=== PATIENT | male | born 1935 | race Caucasian/White ===

== ENCOUNTER 2019-06-26 08:11 | Outpatient (CLI) | payer MEDICARE, SELFPAY ==
--- NOTE | ~2019-06-26 | CT_ITS ---
EXAMINATION: CT chest abdomen pelvis wo con DATE: 06/26/2019 08:44 INDICATION: Bladder cancer. TECHNIQUE: Computed tomography (CT) of the chest, abdomen, and pelvis was performed without intraveno us contrast. Automated exposure control and iterative reconstruction technique were employed. The dos e-length product was 612.14 mGy-cm. COMPARISON: CT abdomen and pelvis 06/09/2018, 10/14/2016 FINDINGS: CHEST CT: There is mild scarring at the lung apices. There is bronchiectasis in the inferior lungs. There is mi ld emphysema. There are centrilobular nodules, tree-in-bud opacities, and small airspace opacities in volving the lower lobes, right middle lobe, and lingula, consistent with pneumonia. Calcified right l dustin nodules and calcified right hilar and mediastinal lymph nodes are consistent with old granulomato us disease. No pleural effusion. There are nodules in the thyroid measuring up to 8 mm, likely not cl inically significant. The heart size is normal. There are coronary artery calcifications. No pericard ial effusion. There is bilateral gynecomastia. There is a benign bone island in right scapula. ABDOMEN/PELVIS CT: There are cysts in the liver measuring up to 12 mm. The gallbladder, spleen, pancreas, and adrenal gl ands are normal. There is a 1.6 cm cyst in right kidney. There is a 1 mm stone in right kidney. There is severe right hydronephrosis and hydroureter to the level of the ileal conduit. There is a 5.3 cm cyst with wall calcifications in left kidney, likely benign. There are 4 stones in left kidney measur ing up to 9 mm. There is severe left hydronephrosis and hydroureter. There are 2 mm, 3 mm, and 6 mm s tones in distal left ureter. There is a small left inguinal hernia containing fat. There is diverticu losis of the colon without evidence of diverticulitis. There is a supraumbilical ventral hernia conta ining fat. There are no pathologically enlarged lymph nodes. There is no free intraperitoneal fluid. The right testis is in the inguinal canal. There is a benign bone island in left femoral head. Again seen is a large sclerotic lesion in L2 vertebral body. IMPRESSION: 1. Stable sclerotic lesion in L2 vertebral body, consistent with metastatic disease. 2. Worsened severe left hydronephrosis and hydroureter with 3 stones in distal left ureter measuring up to 6 mm. 3. Stable severe right hydronephrosis and hydroureter. 4. Bilateral nonobstructing kidney stones. 5. Worsened chronic versus recurrent pneumonia in the inferior lungs. Reviewed, dictated and finalized at location E. IMPRESSION: 1. Stable sclerotic lesion in L2 vertebral body, consistent with metastatic dis ease. 2. Worsened severe left hydronephrosis and hydroureter with 3 stones in distal left ureter measuring up to 6 mm. 3. Stable severe right hydronephrosis and hydroureter. 4. Bilateral nonobstructing kidney stones. 5. Worsened chronic versus recurrent pneumonia in the inferior lungs.
== END 2019-06-26 08:12 | disposition home or self-care (01) ==
PROVIDERS: Visit Provider Internal Medicine Medical Oncology
DX: C67.8 Malignant neoplasm of overlapping sites of bladder (principal); C61 Malignant neoplasm of prostate; C79.51 Secondary malignant neoplasm of bone; M89.9 Disorder of bone, unspecified; N13.30 Unspecified hydronephrosis; N13.4 Hydroureter; N20.1 Calculus of ureter; N20.0 Calculus of kidney; J18.9 Pneumonia, unspecified organism
CPT/HCPCS: 71250; 74176

== ENCOUNTER 2019-07-11 00:37 | Outpatient (CLI) | payer MEDICARE, SELFPAY ==
[2019-07-11 18:39] LABS: SARS-CoV-2 RNA PCR Negative
== END 2019-07-11 00:38 | disposition home or self-care (01) ==
LOC: ANHCOVIDDT 00:37
PROVIDERS: Visit Provider Urology
DX: Z01.812 Encounter for preprocedural laboratory examination (principal); Z20.828 Contact with and (suspected) exposure to other viral communicable diseases
CPT/HCPCS: 87635; 93005; C9803; U0003

== ENCOUNTER 2019-07-11 08:15 | Outpatient (CLI) | payer MEDICARE, SELFPAY ==
--- NOTE | 2019-07-11 08:19 | ECG_ITS ---
Measurements Intervals [place] Rate: 72 P: 74 ID: [id number] QRS: -80 QRSD: 142 T: 56 QT: 412 QTc: 451 Interpretive Statements SINUS RHYTHM RIGHT BUNDLE BRANCH BLOCK LEFT ANTERIOR FASCICULAR BLOCK BASELINE ARTIFACT- V5-V6 ABNORMAL ECG Electronically Signed On 07-11-2019 8:41:32 CDT by Cam Solis D.O.
== END 2019-07-11 08:16 | disposition home or self-care (01) ==
LOC: ANHSURGERY 08:19
PROVIDERS: Visit Provider Urology
DX: N20.1 Calculus of ureter (principal); I45.10 Unspecified right bundle-branch block; I44.4 Left anterior fascicular block
CPT/HCPCS: 93005

== ENCOUNTER 2019-07-13 01:19 | Day surgery (SDC) | payer MEDICARE, SELFPAY ==
[2019-07-06 14:33] VITALS: BMI 24.9
[2019-07-13] VITALS (7 sets, daily range): BP systolic 129–145; BP diastolic 61–73; PULSE 59–73; RESP 11–19; TEMP 36.2–36.8; O2SAT 97–100
--- NOTE | ~2019-07-13 | XR_ITS ---
EXAMINATION: XR fluoroscopy no charge DATE: 07/13/2019 15:19 INDICATION: Left stone extraction and left stent placement. TECHNIQUE: 4 fluoroscopic spot images of the pelvis were obtained during procedure performed by Dr. Karin horowitz. Radiologist was not present for the imaging or procedure. The amount of fluoroscopy time used during this procedure was 0.2 minutes. COMPARISON: CT dated 06/26/2019 FINDINGS: Images demonstrate a catheter check of the right lower quadrant likely extending through a diverting ileal conduit. The stones visualized in the left ureter on prior CT are unable to be distinguished on the postop images likely due to small size and fluoroscopic technique. Surgical clips in the pelvis consistent with prior cystectomy and likely pelvic lymph node dissection. IMPRESSION: 1. Fluoroscopy utilized during likely ileal loopostomy. See procedure note for further detail. Reviewed, dictated and finalized at location A.
--- NOTE | 2019-07-13 07:13 | WPDHPUPDATE1 ---
History and Physical Update Update Date/Time: 07/13/19 07:13 History and Physical has been reviewed, including an updated exam of the patient. There are NO changes in the patient's condition. Risks, benefits, and alternatives have been discussed and questions answered. Patient agrees to proceed with procedure.
--- NOTE | 2019-07-13 08:36 | P.PNAN_ITS ---
Anes - Initial Pre Proc Eval Procedure: Operation Date: 07/13/19 13:15 Proposed Procedures p Looposcopy With Dilation - Hai Vargas MD s Laser Lithotripsy - Hai Vargas MD s Left Ureteroscopy, Left Stone Extraction, Left Ureteral Stent Placement - Hai Vargas MD Date/Time: 07/13/19 08:36 Surgeon: Hai Vargas MD Pre Op Diagnosis: left ureteral stones Patient Data Age: 84 Gender: M Height: 1.73 m Weight: 74.39 kg Allergies Allergy/AdvReac Type Severity Reaction Status Date / Time No Known Allergies Allergy Unverified 07/06/19 14:32 Home Medications Medication Instructions Recorded Confirmed Type enzalutamide [Xtandi] 160 mg PO BID 12/02/18 07/06/19 History leuprolide [Eligard] 7.5 mg SUBCUT DIRECTED 12/02/18 07/06/19 History ECG: Date of Service: 07/11/19 Procedure(s): CA 12 lead EKG Accession Number(s): [id number] cc: ~ Measurements Intervals [place] Rate: 72 P: 74 GA: 178 QRS: -80 QRSD: 142 T: 56 QT: 412 QTc: 451 Interpretive Statements SINUS RHYTHM RIGHT BUNDLE BRANCH BLOCK LEFT ANTERIOR FASCICULAR BLOCK BASELINE ARTIFACT- V5-V6 ABNORMAL ECG Electronically Signed On 07-11-2019 8:41:32 CDT by Cam Solis D.O. Dictated By: Cam Solis DO 07/11/19 0848 Patient hx anesthesia problems: none Family hx anesthesia problems: none PMFSH Past Medical History Medical History Cancer PROSTATE 1996, BLADDER 2016 Surgical History Surgical History H/O prostatectomy H/O total cystectomy CYSTECTOMY 2017 WITH URETEROSTOMY Family History Family History Other Family history of malignant neoplasm Social History Social History Smoking status: Former smoker Smoking end date: 02/08/93 Alcohol intake: current Gender identity (if verbalized by the patient): Male Anes - Eval Final PreProcedure Day of Procedure 07/13/19 08:36 Patient weight: normal Heart: regular rate and rhythm Lungs: clear to auscultation and normal air movement Airway: Mallampati scale class II Neurological: alert and oriented Last oral intake: >/= 8 hours ASA classification: III Emergent: no Anesthetic plan: proceed Anesthesia type and monitoring: general LMA Informed Consent: The patient's anesthetic plan and its attendant risks and benefits were discussed with the patient/family/POA. Questions were solicited and answers provided to the satisfaction of the patient/family/POA.
[2019-07-13] MEDS: LACTATED RINGERS 1,000 ML 30 ML IV CONT (12:00)
[2019-07-13] MEDS: ceFAZolin 2 GM/D5W 50 ML 2 GM/50 ML BAG IVPB (14:06)
--- NOTE | 2019-07-13 15:18 | PM.PROC ---
Procedure Note - Detailed Date of procedure: 07/13/19 Pre-op diagnosis: left ureteral stones Post-op diagnosis: same Procedure performed: Ileal looposcopy Description of procedure: Patient is brought to the operative suite where he is prepped and draped in routine sterile fashion while in the supine position. Lupardus copy of his ileal conduit is undertaken with a 16 F flexible cystoscope. I made an exhaustive attempt to identify the either ureteral orifice, without success. We injected Scott methylene blue and still could not identify the orifices. We attempted to intubate several crevices with glide wires, again without success. At this I abandoned this procedure and make arrangements for placement of a percutaneous nephrostomy tube with either antegrade or retrograde stone manipulation. Anesthesia: GLMA Surgeon: Hai Vargas MD Drains: No Packing: No Pathology: none sent Complications: No immediate complications Condition: stable Disposition: PACU
--- NOTE | 2019-07-13 16:57 | SUR.PREOP ---
UPON ARRIVAL TO OP AREA, PT DENIED PAIN. UROSTOMY BAG INTACT/EMPTY.
== END 2019-07-13 17:04 | disposition home or self-care (01) ==
PROVIDERS: Visit Provider Urology
PROC: (CPT 50951; principal; 2019-07-13 13:15)
DX: N20.1 Calculus of ureter (principal); Z85.51 Personal history of malignant neoplasm of bladder; N41.1 Chronic prostatitis; Z85.46 Personal history of malignant neoplasm of prostate; Z86.718 Personal history of other venous thrombosis and embolism; Z79.01 Long term (current) use of anticoagulants; Z87.891 Personal history of nicotine dependence
CPT/HCPCS: 50951; A9270; C1769; C1887; J0690; J2370; J2405; J2704; J3010; J7120; Q9966; Q9968

== ENCOUNTER 2019-07-18 00:37 | Outpatient (CLI) | payer MEDICARE, SELFPAY ==
[2019-07-18 18:58] LABS: SARS-CoV-2 RNA PCR Negative
== END 2019-07-18 00:38 | disposition home or self-care (01) ==
LOC: ANHCOVIDDT 00:37
PROVIDERS: Visit Provider Urology
DX: Z43.6 Encounter for attention to other artificial openings of urinary tract (principal); Z20.828 Contact with and (suspected) exposure to other viral communicable diseases
CPT/HCPCS: 87635; C9803; U0003

== ENCOUNTER 2019-07-19 14:00 | Inpatient (IN) | payer MEDICARE, SELFPAY ==
[2019-07-19] VITALS (20 sets, daily range): BP systolic 93–135; BP diastolic 45–75; PULSE 71–96; RESP 13–20; TEMP 36.7; O2SAT 88–100; BMI 26.9
--- NOTE | ~2019-07-19 | CT_ITS ---
EXAMINATION: CT guide nephro tube pl LT DATE: 07/19/2019 13:29 INDICATION: Left ureteral stone TECHNIQUE: The procedure including the risks and benefits was discussed with the patient. Risks discu ssed included bleeding and infection. The patient understood the risks and benefits and agreed to pro ceed. The patient was given 1 g of Ancef IV for prophylaxis one half hour prior to placement of the n ephrostomy tube. The skin overlying the left kidney was prepped and draped in usual sterile fashion. Anesthetic was administered with 1% lidocaine subcutaneously. The patient also received 50 mcg fent anyl for additional anesthesia. An 18 gauge trochar needle was inserted into an inferior calyx of th e kidney under CT guidance. The needle was exchanged over a wire for 6, 8 and 9 [place]ian dilators and t hen for an 8.5 [place]ian pigtail catheter under CT guidance. The catheter was stitched to the skin. Anti biotic ointment and a sterile dressing was applied. Additional adhesive fixation device was applied. The mAs was manually decreased to minimize radiation dosage. The dose-length product was 263.10 mGy-c m. There were no immediate complications. 20 mL of clear colorless urine was aspirated and [facility] for Gram stain and cultures. FINDINGS: CT images demonstrate the nephrostomy tube in the left renal pelvis. Severe bilateral hydro ureteronephrosis with both ureters extending to a left lower quadrant ileal conduit. There are couple stones at the anterior and posterior margins of the dilated calyx at the lower pole of the left kidn ey which have not changed in position on the current prone images when compared with the prior supine images. Peripheral rim calcification at a cyst along the anterior margin of the left kidney. IMPRESSION: 1. Successful CT-guided left nephrostomy tube placement with loops formed in the left renal pelvis. Reviewed, dictated and finalized at location A. IMPRESSION: 1. Successful CT-guided left nephrostomy tube placement with loops formed in e left renal pelvis.
--- NOTE | ~2019-07-19 | XR_ITS ---
EXAMINATION: XR fluoroscopy <1hr DATE: 07/20/2019 12:12 INDICATION: Left antegrade pyelogram, stone extraction and ureteral stent placement TECHNIQUE: 8 fluoroscopic images of the abdomen and pelvis were obtained during procedure performed noelle Vargas. Radiologist was not present for the imaging or procedure. The amount of fluoroscopy sanjay e used during this procedure was 1.2 minutes. COMPARISON: None. FINDINGS: Initial hospice patient care secretary image demonstrates a left percutaneous nephrostomy tube with distal loop formed over th e expected location of the left renal pelvis. Subsequent images demonstrate contrast opacification of the left renal collecting system with mild hydronephrosis which appears decreased since on CT images obtained during stent placement one day prior. Subsequent images demonstrate a wire advanced through the nephrostomy tube which extends caudally along the left ureter. There is also been advancement of a retrograde ureteral stent with distal tip also at the left renal pelvis. Final image demonstrates the stent extending distally along the course of a right lower quadrant ileal conduit with distal loo p formed near the expected location of the ostomy of the conduit. IMPRESSION: 1. Fluoroscopy utilized during urologic procedure including replacement of a left percutaneous nephro stomy tube with left ureteral stent extending through a right lower quadrant ileal conduit. See proce dure note for further detail. Reviewed, dictated and finalized at location A. IMPRESSION: 1. Fluoroscopy utilized during urologic procedure including replacement of a le ft percutaneous nephrostomy tube with left ureteral stent extending through a r ight lower quadrant ileal conduit. See procedure note for further detail.
[2019-07-19 10:26] LABS: Mean Platelet Volume 9.1 fl (7.4-10.4); Platelet Count Result 323 k/mm3 (150-375)
--- NOTE | 2019-07-19 12:28 | SUR.OPER ---
1216 Ancef 1Gram given prior to procedure per Dr. Polanco.
--- NOTE | 2019-07-19 12:29 | P.HP_ITS ---
H&P: HPI History of Present Illness Chief complaint: URETERAL STONES Narrative: Miguelito Garcia is a 84 year old male With a history of known prostate and bladder cancer. He is statusPost radical cystectomy severalYearsAgo.He has recently developed some renal insufficiency and upper tract imaging shows new left hydronephrosis with 2 or3 smallStones in his distal left ureter. Last week I had attempted looposcopy to identify ureteral orifice without success. Review of Systems Cardiovascular: Cardiovascular: Denies chest pain, Denies lightheadedness, Denies palpitations and Denies dyspnea Respiratory: Respiratory: Denies dyspnea Gastrointestinal: Gastrointestinal: Denies diarrhea, Denies nausea and Denies vomiting Genitourinary: Genitourinary: Denies hematuria and Denies dysuria Endocrine: Endocrine: Denies palpitations PMFSH Past Medical History Medical History Cancer PROSTATE 1995, BLADDER 2016 Surgical History Surgical History H/O prostatectomy H/O total cystectomy CYSTECTOMY 2017 WITH URETEROSTOMY Social History Social History Smoking status: Former smoker Smoking end date: 02/08/93 Alcohol intake: current Gender identity (if verbalized by the patient): Male Meds Home Medications and Allergies Home Medications Medication Instructions Recorded Confirmed Type Eligard 7.5 mg SUBCUT DIRECTED 12/02/18 07/13/19 History Xtandi 160 mg PO BID 12/02/18 07/13/19 History Allergies Allergy/AdvReac Type Severity Reaction Status Date / Time No Known Allergies Allergy Unverified 07/13/19 12:28 Vital Signs Vital Signs - 24 hr 07/19/19 12:15 Pulse Rate 71 Respiratory Rate 15 Blood Pressure 130/71 Pulse Oximetry 96 Exam Const: General: no acute distress Resp: Effort & Inspection: normal respiratory effort GI: Inspection: non-distended and other (ileostomy RLQ) GI Palp: No abdominal tenderness and No Guarding due to palpation present (GI) Auscultation: normal bowel sounds H&P: Results Labs Labs: Short CBC 07/19/19 Range/Units 10:21 Plt Count 323 (150-375) k/mm3 Assessment and Plan Assessment and plan (1) H/O prostatectomy: Code(s): Z90.79 - Acquired absence of other genital organ(s) Status: Acute (2) H/O total cystectomy: Code(s): Z90.6 - Acquired absence of other parts of urinary tract Status: Acute (3) Left ureteral injury: Code(s): S37.10XA - Unspecified injury of ureter, initial encounter Status: Acute Assessment and Plan: * Placement of left percutaneous nephrostomy tube today. * Looposcopy or percutaneous left ureteral stone extraction 07/20/2019.
--- NOTE | 2019-07-19 14:00 | PC.NURSE ---
This patient, Miguelito Garcia, was admitted to [facility] Surg Room 311-01. Patient/family oriented to hospital policies and general routines including ID bracelet, bed and alarms, visiting hours, pain management, procedures, bathroom and other care routines, personal items, smoking policy, room service/diet, and visiting hours. Valuables list has been completed. Information on how to activate the Rapid Response Team has been discussed. Patient/Family are encouraged to report perceived risks to care and to ask questions if they do not understand what they are told or what they should do.
[2019-07-19] MEDS: SODIUM CHLORIDE 0.9% IV 250 ML IV CONT (14:58)
[2019-07-19 15:28] LABS: Glucose Point of Care 93 (65-105)
--- NOTE | 2019-07-19 16:07 | PM.IMCN ---
Assessment and Plan Assessment and plan (1) Left ureteral injury: Code(s): S37.10XA - Unspecified injury of ureter, initial encounter Status: Acute Assessment and Plan: A left nephrostomy tube placed today. The patient had a syncopal episode and had orthostatic hypotension he responded to fluids. Postop care per Dr. martinez. (2) Syncopal episodes: Code(s): R55 - Syncope and collapse Status: Acute Assessment and Plan: Postop procedural hypo tension orthostatic. Continue to monitor orthostatic blood pressures and continue with IV fluids. (3) Hypotension: Code(s): I95.9 - Hypotension, unspecified Status: Acute Assessment and Plan: Continue with IV fluids and hold pain medication and chills blood pressures equalized. (4) Cancer: Code(s): C80.1 - Malignant (primary) neoplasm, unspecified Status: Acute Assessment and Plan: Continue with home medications. It looks like he is on Eligard and Xtandi. HPI Data of Consult Consult date: 07/19/19 Requesting Physician: Hai Oh MD Primary Care Provider: Basilio Montes De Oca Consult Narrative Narrative: Miguelito Garcia is a 84 year old male who had history of known prostate bladder cancer. He has been seeing Dr. oh. The patient has recently developed some renal insufficiency and upper tract imaging shows new left hydronephrosis with a 2-3 small stones in the distal left ureter. The patient had a nephrostomy tube placed today. He stated that he had to have a bowel movement and wants to get to the bathroom he said he felt dizzy. The nurse said that he nodded off but then came around pretty easy. And then office and he passed out and when his blood pressure was checked it was found to be low. The patient please see procedure note. After rapid was called. Patient responded with IV fluids. The hospitalist group has been consulted due to this syncopal episode. The patient probably had a procedural orthostatic hypotension Date of service 07/19/2019 Review of Systems Review of Systems: All systems reviewed & are unremarkable except as noted in HPI and below Constitutional: Constitutional: Reports as per HPI and Reports no additional constitutional complaints Eyes: Eyes: Reports as per HPI and Reports no additional eye complaints ENT: Reports system reviewed and no additional complaints, except as documented and Reports Normal hearing present Cardiovascular: Cardiovascular: Reports no additional cardiovascular complaints Respiratory: Respiratory: Reports no additional respiratory complaints and Reports no additional respiratory complaints Gastrointestinal: Gastrointestinal: Reports as per HPI and Reports no additional gastrointestinal complaints Musculoskeletal: Musculoskeletal: Reports no additional musculoskeletal complaints Integumentary/Breasts: Skin/Breast: Reports system reviewed and no additional complaints, except as docu and Reports as per HPI Neurologic: Reports system reviewed and no additional complaints, except as documented, Reports as per HPI and Reports Normal hearing present Psychiatric: Psychiatric: Reports no additional psychiatric complaints and Reports as per HPI Endocrine: Endocrine: Reports no additional endocrine complaints Hematologic/Lymphatic: Hematologic/Lymphatic: Reports no additional hematologic/lymphatic complaints Allergic/Immunologic: Allergic/Immunologic: Reports no additional allergic/immunologic complaints PENDING SALE TO [facility] Past Medical History Medical History (Updated 07/19/19 @ 16:13 by Liliya Arnold NP) Cancer PROSTATE 1996, BLADDER 2016 Surgical History Surgical History (Updated 07/19/19 @ 16:16 by Liliya Arnold NP) H/O prostatectomy H/O total cystectomy CYSTECTOMY 2017 WITH URETEROSTOMY History of open reduction and internal fixation (ORIF) procedure Left ankle S/P ileal conduit Right lower quadrant Family History Family History (Updated 07/18
[2019-07-19 16:53] LABS: Hematocrit 33.9 % (42.0-52.0); Hemoglobin 10.8 g/dL (14.0-18.0); Mean Corpuscular HGB Conc 31.9 g/dl (32-36); Mean Corpuscular Hemoglobin 28.3 pg (26-34); Mean Platelet Volume 9.2 fl (7.4-10.4); Platelet Count Result 273 k/mm3 (150-375); Red Blood Count 3.81 M/mm3 (4.6-6.20); White Blood Count 14.2 K/mm3 (4.5-10.0)
[2019-07-19 17:05] LABS: Blood Urea Nitrogen 34 mg/dL (9-20); Calcium 8.4 mg/dL (8.4-10.2); Carbon Dioxide 21 mmol/L (22-30); Chloride 108 mmol/L (98-107); Estimated CRCL calculation 21 ml/min; Estimated Glomerular Filt Rate 27; Glucose 113 mg/dL (75-110); Potassium 4.7 mmol/L (3.4-5.0); Sodium 136 mmol/L (137-145)
--- NOTE | 2019-07-19 17:27 | WPDURCON ---
Assessment and Plan Assessment and plan (1) Left ureteral stone: Code(s): N20.1 - Calculus of ureter Status: Acute Assessment and Plan: - appreciate hospitalist recs - start IV antibiotics with Rocepin - IVF - close monitoring - NPO at MT (2) Hypotension: Code(s): I95.9 - Hypotension, unspecified Status: Acute Urology Consult Note HPI Date Seen: 07/19/19 Requesting Physician: Hai Vargas MD Primary Care Provider: Basilio Montes De Oca Consult Narrative Narrative: Miguelito Garcia is a 84 year old male admitted after left PCN insertion, scheduled for PCNL/loopogram in am . Pt with dizziness, lightheaded while in restroom after IR preocedure Review of Systems Constitutional: Constitutional: Reports chills Eyes: Eyes: Reports no additional eye complaints Cardiovascular: Cardiovascular: Reports no additional cardiovascular complaints Respiratory: Respiratory: Reports no additional respiratory complaints Gastrointestinal: Gastrointestinal: Reports no additional gastrointestinal complaints Musculoskeletal: Musculoskeletal: Reports no additional musculoskeletal complaints [facility] Past Medical History Medical History (Updated 07/19/19 @ 17:32 by Loretta Campbell MD) Cancer PROSTATE 1995, BLADDER 2016 Surgical History Surgical History (Updated 07/19/19 @ 16:16 by Liliya Arnold NP) H/O prostatectomy H/O total cystectomy CYSTECTOMY 2017 WITH URETEROSTOMY History of open reduction and internal fixation (ORIF) procedure Left ankle S/P ileal conduit Right lower quadrant Family History Family History (Updated 07/19/19 @ 15:11 by Jamee Dunaway RN) Mother Leukemia Family history of malignant neoplasm Father Heart disease Social History Social History (Updated 07/19/19 @ 16:17 by Liliya Arnold NP) Social History: Patient smoked about 40 years ago. He has a son and a daughter. 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 He is and lives with his . He desires to be a full code. No alcohol or illicit drugs or marijuana. Smoking packs per day: 1 Smoking cigarettes per day: 20.0 Years smoked: 15 Smoking pack-years: 15.00 Smoking status: Former smoker Tobacco type: cigarettes Smoking end date: 02/08/93 Alcohol intake: never Substance use: never Gender identity (if verbalized by the patient): Male Spiritual care concerns: No Meds Home Medications and Allergies Home Medications Medication Instructions Recorded Confirmed Type Eligard 7.5 mg SUBCUT DIRECTED 12/02/18 07/19/19 History Xtandi 160 mg PO BID 12/02/18 07/19/19 History Allergies Allergy/AdvReac Type Severity Reaction Status Date / Time No Known Allergies Allergy Unverified 07/13/19 12:28 Vital Signs Vital Signs - 24 hr 07/19/19 12:15 07/19/19 12:30 07/19/19 12:35 Temperature Pulse Rate 71 78 77 Respiratory Rate 15 14 15 Blood Pressure 130/71 133/72 127/72 Pulse Oximetry 96 100 100 07/19/19 12:40 07/19/19 12:45 07/19/19 12:50 Temperature Pulse Rate 77 76 77 Respiratory Rate 13 15 19 Blood Pressure 123/70 129/66 122/67 Pulse Oximetry 100 100 100 07/19/19 12:55 07/19/19 13:00 07/19/19 13:05 Temperature Pulse Rate 74 78 73 Respiratory Rate 15 14 16 Blood Pressure 121/61 135/67 132/69 Pulse Oximetry 100 99 100 07/19/19 13:31 07/19/19 13:32 07/19/19 14:00 Temperature 36.7 C Pulse Rate 80 75 73 Respiratory Rate 18 15 16 Blood Pressure 130/68 122/65 132/75 Pulse Oximetry 100 98 99 07/19/19 14:49 07/19/19 15:23 Temperature Pulse Rate 85 Respiratory Rate 18 Blood Pressure 97/46 L Pulse Oximetry 88 L 94 Exam Const: General: no acute distress Eyes: General: appearance normal, both eyes and all related structures Resp: Auscultation: clear to auscultation bilaterally GI: Auscultation: normal bowel sounds Other: Urostone with clear urine. left PCN with kathleen urine Neur
[2019-07-19] MEDS: SODIUM CHLORIDE 0.9% IV 1,000 ML 100 ML IV CONT (17:29)
[2019-07-19 17:34] LABS: Add Urine Microscopic? YES; Appearance Urine Cloudy (Clear); Bacteria Urine Trace /hpf; Bilirubin Urine Negative (Negative); Blood Urine 2+ (Negative); Color Urine Yellow (Yellow); Glucose Urine UA Negative (Negative); Ketones Urine Negative (Negative); Leukocyte Esterase Ur 3+ LEU/UL (NEGATIVE); Nitrate Urine Negative (Negative); Protein Urine 2+ mg/dL (Negative); RBC Urine 21-50 /hpf (0-2); Urobilinogen Urine Negative mg/dL (<2.0); WBC Clumps Urine Present /HPF; WBC Urine >75 /hpf (0-3)
[2019-07-20] VITALS (16 sets, daily range): BP systolic 101–123; BP diastolic 50–68; PULSE 72–83; RESP 16–22; TEMP 36.3–37.1; O2SAT 93–100
[2019-07-20] MEDS: SODIUM CHLORIDE 0.9% IV 1,000 ML 100 ML IV CONT ×2 (00:25→13:16)
[2019-07-20 06:06] LABS: Basophils Absolute Auto 0.1 K/mm3 (0.0-0.1); Basophils Percent Auto 0.3 % (0.2-1.2); Eosinophils Percent Auto 0.2 % (0-4.4); Hematocrit 34.1 % (42.0-52.0); Hemoglobin 10.9 g/dL (14.0-18.0); Immature Granulocyte Absolute 0.07 K/mm3 (0.00-0.031); Immature Granulocyte Percent A 0.5 % (0-0.5); Lymphocytes Absolute Auto 1.44 K/mm3 (0.9-3.2); Mean Corpuscular Hemoglobin 28.8 pg (26-34); Mean Corpuscular Volume 90.2 fl (80-100); Mean Platelet Volume 9.3 fl (7.4-10.4); Monocytes Absolute Auto 1.4 K/mm3 (0.1-0.6); Monocytes Percent Auto 9.8 % (2.6-8.5); Neutrophils Absolute Auto 11.4 K/mm3 (1.3-6.7); Neutrophils Percent Auto 79.2 % (45.5-73.1); Platelet Count Result 274 k/mm3 (150-375); Red Blood Count 3.78 M/mm3 (4.6-6.20); Red Cell Distribution Width 15.4 % (11.5-14.5); White Blood Count 14.4 K/mm3 (4.5-10.0)
[2019-07-20 06:42] LABS: Alanine Aminotransferase 7 U/L (4-50); Albumin Level 3.4 g/dL (3.5-5.1); Alkaline Phosphatase 70 U/L (38-126); Aspartate Amino Transferase 22 U/L (17-59); Bilirubin,Total 0.3 mg/dL (0.2-1.3); Blood Urea Nitrogen 36 mg/dL (9-20); Calcium 7.9 mg/dL (8.4-10.2); Carbon Dioxide 22 mmol/L (22-30); Chloride 109 mmol/L (98-107); Estimated CRCL calculation 20 ml/min; Estimated Glomerular Filt Rate 26; Glucose 105 mg/dL (75-110); Magnesium 1.9 mg/dL (1.6-2.3); Potassium 4.5 mmol/L (3.4-5.0); Sodium 137 mmol/L (137-145)
[2019-07-20 07:41] LABS: CRP 17.5 mg/dL (<1.0)
--- NOTE | 2019-07-20 10:18 | WPDANESEPPF ---
Anes - Initial Pre Proc Eval Procedure: Operation Date: 07/19/19 11:45 Proposed Procedures p Radiology Procedure Mod.Sed.Rn/ For Nephrostomy Tube - Rony Nation MD Operation Date: 07/20/19 11:30 Proposed Procedures p Left Percutaneous Nephrolithotomy - Hai Vargas MD Date/Time: 07/20/19 10:18 Surgeon: Hai Vargas MD Pre Op Diagnosis: URETERAL STONES Patient Data Age: 84 Gender: M Height: 5 ft 7 in Weight: 78.1 kg Last Vital Signs Temp 36.3 C L 07/20/19 10:00 Pulse 80 07/20/19 10:00 Resp 16 07/20/19 10:00 BP 105/54 L 07/20/19 10:00 Pulse Ox 98 07/20/19 10:00 Allergies Allergy/AdvReac Type Severity Reaction Status Date / Time No Known Allergies Allergy Unverified 07/20/19 10:10 Home Medications Medication Instructions Recorded Confirmed Type Eligard 7.5 mg SUBCUT DIRECTED 12/02/18 07/19/19 History Xtandi 160 mg PO BID 12/02/18 07/19/19 History Laboratory Tests 07/19/19 07/19/19 07/19/19 10:21 10:21 14:49 WBC RBC Hgb Hct MCV MCH MCHC RDW Plt Count 323 k/mm3 k/mm3 (150-375) MPV 9.1 fl fl (7.4-10.4) Immature Gran % (Auto) Neut % (Auto) Lymph % (Auto) [place] % (Auto) Eos % (Auto) Baso % (Auto) Lymph # (Auto) [place] # (Auto) Eos # (Auto) Baso # (Auto) Abs Immat Gran (auto) Absolute Neuts (auto) Absolute Nucleated RBC Nucleated RBC % PT 13.0 Seconds Seconds (11.1-14.7) INR 1.0 Sodium Potassium Chloride Carbon Dioxide BUN Creatinine Estim Creat Clear Calc Estimated GFR Glucose POC Capillary Glucose 93 mg/dl mg/dl (65-105) Calcium Magnesium Total Bilirubin AST ALT Alkaline Phosphatase C-Reactive Protein Total Protein Albumin TSH (Reflex) Urine Color Urine Appearance Urine pH Ur Specific [place] Urine Protein Urine Glucose (UA) Urine Ketones Ur Blood (Man) Urine Nitrate Urine Bilirubin Urine Urobilinogen Ur Leukocyte Esterase Urine RBC Urine WBC Urine WBC Clumps Urine Bacteria 07/19/19 07/19/19 07/19/19 16:44 16:44 17:21 WBC 14.2 K/mm3 H K/mm3 (4.5-10.0) RBC 3.81 M/mm3 L M/mm3 (4.6-6.20) Hgb 10.8 g/dL L g/dL (14.0-18.0) Hct 33.9 % L % (42.0-52.0) MCV 89.0 fl fl (80-100) MCH 28.3 pg pg (26-34) MCHC 31.9 g/dl L g/dl (32-36) RDW 15.0 % H % (11.5-14.5) Plt Count 273 k/mm3 k/mm3 (150-375) MPV 9.2 fl fl (7.4-10.4) Immature Gran % (Auto) Neut % (Auto) Lymph % (Auto) [place] % (Auto) Eos % (Auto) Baso % (Auto) Lymph # (Auto) [place] # (Auto) Eos # (Auto) Baso # (Auto) Abs Immat Gran (auto) Absolute Neuts (auto) Absolute Nucleated RBC Nucleated RBC % PT INR Sodium 136 mmol/L L mmol/L (137-145) Potassium 4.7 mmol/L mmol/L (3.4-5.0) Chloride 108 mmol/L H mmol/L (98-107) Carbon Dioxide 21 mmol/L L mmol/L (22-30) BUN 34 mg/dL H mg/dL (9-20) Creatinine 2.30 mg/dL H mg/dL (0.7-1.3) Estim Creat Clear Calc 21 ml/min ml/min Estimated
[2019-07-20] MEDS: LACTATED RINGERS 1,000 ML 30 ML IV CONT (10:21)
--- NOTE | 2019-07-20 12:07 | PM.PROC ---
Procedure Note - Detailed Date of procedure: 07/20/19 Pre-op diagnosis: URETERAL STONES Post-op diagnosis: same Procedure performed: 1. Left antegrade pyelogram. 2. Left ureteral dilatation, ureteroscopy with stone extraction. 3. Left ureteral stent placement. Description of procedure: patient is brought to the operative suite where he has prepped and draped in routine sterile fashion while in a supine position. He had a left percutaneous nephrostomy tube placed yesterday. Antegrade pyelography is undertaken and a 0.035 in glidewire is advanced into the renal pelvis down the left ureter and into the ileal conduit. Using a 16 F flexible cystoscope it is retrieved from the conduit. Distal ureteral dilatation is undertaken with an 8 F 10 F dilator. Ureteroscopy is undertaken with this 7.5 F flexible ureteral scope. There is 1 moderate sized, 3-4 mm, distal ureteral stone which is extracted with the Mychal wire. There are no additional ureteral calculi. My suspicion is he may have an underlying urethral ureteral stricture so I opted to leave a 6 F variable length stent. There certainly was no evidence of urothelial neoplasm or other significant pathology. Anesthesia: GLMA Surgeon: Hai Vargas MD Estimated blood loss (mL): 0 Drains: Yes (6F left ureteral stent) Packing: No Pathology: none sent Complications: No immediate complications Condition: stable Disposition: PACU
--- NOTE | 2019-07-20 12:35 | SUR.PHASEI ---
1235 SPOKE WITH PT , UPDATED ON PT.
--- NOTE | 2019-07-20 13:15 | PC.NURSE ---
Patient returned from surgery per bed.
--- NOTE | 2019-07-20 15:21 | PM.IMPN ---
Progress Note: A&P Assessment and Plan (1) Left ureteral injury: Code(s): S37.10XA - Unspecified injury of ureter, initial encounter Status: Acute Assessment and Plan: Patient underwent left percutaneous nephrostomy tube placement on 07/19/2019 and followed up with, stone extraction and ureteral stent placement today by Dr. Vargas. Postoperative care per Dr. Vargas (2) Syncopal episodes: Code(s): R55 - Syncope and collapse Status: Acute Assessment and Plan: Patient had a syncopal episode while having a bowel movement in the bathroom. He reported he became dizzy and lightheaded, and he pulled the call light. Nursing staff found him ?nodding off but apparently he came to shortly thereafter. He was found to be hypotensive, which responded well to IV fluids. Continue IV fluids Continue to monitor blood pressure closely Continue fall precautions and ambulation with assistance (3) Hypotension: Code(s): I95.9 - Hypotension, unspecified Status: Acute Assessment and Plan: At presentation, blood pressures were stable at target. Yesterday afternoon, he became hypotensive as low as 93/55. He was not orthostatic. Today, blood pressures are mildly low but improved. Most recent blood pressure is 104/62. Continue IV fluids Continue to monitor orthostatic vital signs daily Continue to hold IV pain medication. Pain is currently well controlled. (4) Cakkn-pz-qijlgoa kidney injury: Code(s): N17.9 - Acute kidney failure, unspecified; N18.9 - Chronic kidney disease, unspecified Status: Acute Assessment and Plan: Patient has a documented history of chronic kidney disease. BUN and creatinine are elevated, most likely secondary to ureteral stone. Baseline creatinine appears to be 1.2 from review of prior labs. Today BUN is 36 and creatinine is 2.4. Suspect improvement following ureteral stent placement. Continue IV fluids Continue to monitor renal function and avoid nephrotoxic agents. (5) H/O total cystectomy: Code(s): Z90.6 - Acquired absence of other parts of urinary tract Status: Acute Assessment and Plan: Patient has a history of bladder cancer and underwent total cystectomy. He has a urostomy bag in place which is draining clear, yellow urine. Patient reports he is due for urostomy bag change. Will need to determine if we have proper equipment in order to accommodate or if he will need to bring a new bag from home. Subjective Date/time seen: 07/20/19 15:21 Interval history: Date of service: 07/20/2019 Mr. Garcia reports he is feeling much better today. He has just returned from surgery and is feeling well. He denies any dizziness, lightheadedness, or weakness. He denies any acute pain. He denies shortness of breath or chest pain. He denies abdominal pain, flank pain, or back pain. He has a urostomy bag, and tells me that he is due for a replacement bag. He ate lunch after surgery and did well with a regular diet. He is anxious for dinner. He also requests to get up and walk. He is tired of lying in bed. Review of Systems Review of Systems: Narrative: A 12 point review of systems was reviewed with pertinent positives and negatives as per HPI. Exam Narrative: Exam Narrative: Mr. Garcia is examined alone today. He is a well-nourished 84-year-old male who appears slightly younger than stated age. He is lying supine in bed and appears comfortable in no acute respiratory distress. HR 74, BP 115/57, RR 16, T 97.7?, 96% on room Neuro: awake, alert and oriented x4, speech clear, no focal neuro deficits noted HEENMT: normocephalic, atraumatic, EOMI, PERRL, sclerae anicteric, moist oral mucosa Neck: supple, no lymphadenopathy Respiratory: Occasional bibasilar inspiratory crackles, no wheezes, normal respiratory effort without accessory muscle use Cardio: regular rate, regular rhythm, normal S1 and S2 Ab
[2019-07-21 01:55] VITALS: BP 117/57; PULSE 71; RESP 18; TEMP 36.8; O2SAT 94
[2019-07-21] MEDS: SODIUM CHLORIDE 0.9% IV 1,000 ML 100 ML IV CONT (03:05)
[2019-07-21 05:43] LABS: Basophils Absolute Auto 0.1 K/mm3 (0.0-0.1); Basophils Percent Auto 0.5 % (0.2-1.2); Eosinophils Absolute Auto 0.2 K/mm3 (0-0.3); Eosinophils Percent Auto 2.2 % (0-4.4); Hematocrit 30.6 % (42.0-52.0); Hemoglobin 9.6 g/dL (14.0-18.0); Immature Granulocyte Absolute 0.05 K/mm3 (0.00-0.031); Immature Granulocyte Percent A 0.5 % (0-0.5); Lymphocytes Absolute Auto 2.22 K/mm3 (0.9-3.2); Lymphocytes Percent Auto 22.1 % (18.3-44.2); Mean Corpuscular HGB Conc 31.4 g/dl (32-36); Mean Corpuscular Hemoglobin 28.7 pg (26-34); Mean Corpuscular Volume 91.3 fl (80-100); Mean Platelet Volume 9.7 fl (7.4-10.4); Monocytes Absolute Auto 1.5 K/mm3 (0.1-0.6); Monocytes Percent Auto 14.6 % (2.6-8.5); Neutrophils Percent Auto 60.1 % (45.5-73.1); Platelet Count Result 261 k/mm3 (150-375); Red Blood Count 3.35 M/mm3 (4.6-6.20); Red Cell Distribution Width 15.2 % (11.5-14.5)
[2019-07-21 06:02] LABS: Alanine Aminotransferase 7 U/L (4-50); Albumin Level 3.2 g/dL (3.5-5.1); Alkaline Phosphatase 66 U/L (38-126); Aspartate Amino Transferase 18 U/L (17-59); Bilirubin,Total 0.2 mg/dL (0.2-1.3); Blood Urea Nitrogen 31 mg/dL (9-20); Calcium 7.8 mg/dL (8.4-10.2); Carbon Dioxide 20 mmol/L (22-30); Chloride 111 mmol/L (98-107); Estimated CRCL calculation 24 ml/min; Estimated Glomerular Filt Rate 32; Glucose 94 mg/dL (75-110); Potassium 3.9 mmol/L (3.4-5.0); Sodium 138 mmol/L (137-145)
[2019-07-21 07:53] VITALS: BP 132/64; PULSE 68; RESP 18; TEMP 36.8; O2SAT 92
--- NOTE | 2019-07-21 08:16 | WPDUROPN2 ---
Progress Note: A&P Assessment and Plan (1) Left ureteral stone: Code(s): N20.1 - Calculus of ureter Status: Acute Assessment and Plan: Status post endoscopy of conduit left ureteroscopy with stone extraction and stent placement by Dr. Jeffries. He is doing well. Will discharge home today. He will follow-up with Dr. Vargas in about a week's time for the stent removal Subjective Subjective Date/Time Seen: 07/21/19 08:16 Doing well at this time without any complaints. Urine is clear in his ostomy bag Review of Systems Review of Systems: All systems reviewed & are unremarkable except as noted in HPI and below Exam Const: General: no acute distress Eyes: EOM: EOMs intact bilaterally Resp: Effort & Inspection: normal respiratory effort Cardio: Rate: regular rate GI: Inspection: non-distended Objective Data Vital Signs Vital Signs: Vital Signs - 24 hr 07/20/19 10:00 07/20/19 12:13 07/20/19 12:25 Temperature 36.3 C L 37.1 C Pulse Rate 81 83 79 Respiratory Rate 16 20 22 H Blood Pressure 105/54 L 120/62 116/61 Pulse Oximetry 98 99 100 07/20/19 12:39 07/20/19 12:40 07/20/19 12:55 Temperature Pulse Rate 80 78 83 Respiratory Rate 22 H 20 Blood Pressure 118/62 113/60 Pulse Oximetry 99 100 100 07/20/19 13:20 07/20/19 13:35 07/20/19 14:05 Temperature 36.5 C Pulse Rate 78 78 74 Respiratory Rate 16 16 16 Blood Pressure 121/59 L 112/61 115/57 L Pulse Oximetry 94 98 96 07/20/19 15:33 07/20/19 18:16 07/20/19 20:00 Temperature 36.7 C 36.3 C L 36.8 C Pulse Rate 80 74 79 Respiratory Rate 16 16 18 Blood Pressure 104/62 107/60 114/61 Pulse Oximetry 95 97 93 07/20/19 20:05 07/20/19 20:10 07/21/19 01:55 Temperature 36.8 C Pulse Rate 79 79 71 Respiratory Rate 18 Blood Pressure 123/66 116/68 117/57 L Pulse Oximetry 94 07/21/19 07:53 Temperature 36.8 C Pulse Rate 68 Respiratory Rate 18 Blood Pressure 132/64 Pulse Oximetry 92 Intake/Output Intake/Output: Intake & Output 07/18/19 07/19/19 07/20/19 07/21/19 23:59 23:59 23:59 23:59 Intake Total 790 4880 300 Output Total 700 1930 1325 Balance 90 2950 -1025 Meds/Results Medications: Active Medications Generic Name Dose Route Start Last Admin Trade Name Freq PRN Reason Stop Dose Admin Sodium Chloride 1,000 mls @ 75 mls/hr 07/19/19 17:15 07/21/19 03:05 Normal Saline Iv IV CONT 100 mls/hr .[id number] [place] Administration Ceftriaxone Sodium/Dextrose 1 gm in 50 mls @ 100 mls/hr 07/19/19 18:00 07/20/19 18:39 Rocephin 1 Gm/D5w 50 Ml IVPB Infused Q24H [place] Infusion Non-Formulary Medication 160 mg 07/19/19 17:00 Enzalutamide [Xtandi] PO 08/18/19 17:01 BID [place] Non-Formulary Medication 7.5 mg 07/19/19 16:30 Leuprolide Acetate SUB-Q 08/18/19 16:31 DIRECTED [facility] Radiology Results: ITS Impressions Nephrostomy Tube Placement 07/19/19 14:02 IMPRESSION: 1. Successful CT-guided left nephrostomy tube placement with loops formed in the left renal pelvis. Fluoroscopy 07/20/19 12:40 IMPRESSION: 1. Fluoroscopy utilized during urologic procedure including replacement of a left percutaneous nephrostomy tube with left ureteral stent extending through a right lower quadrant ileal conduit. See procedure note for further detail. Labs Labs: Laboratory Results - last 24 hr 07/21/19 07/21/19 05:11 05:11 WBC 10.0 RBC 3.35 L Hgb 9.6 L Hct 30.6 L MCV 91.3 MCH 28.7 MCHC 31.4 L RDW 15.2 H Plt Count 261 MPV 9.7 Immature Gran % (Auto) 0.5 Neut % (Auto) 60.1 Lymph % (Auto) 22.1 [place] % (Auto) 14.6 H Eos % (Auto) 2.2 Baso % (Auto) 0.5 Lymph # (Auto) 2.22 [place] # (Auto) 1.5 H Eos # (Auto) 0.2 Baso # (Auto) 0.1 Abs Immat Gran (auto) 0.05 H Absolute Neuts (auto) 6.0 Absolute Nucleated RBC 0.0 Nucleated RBC % 0.0 Sodium 138 Potassium 3.9 Chloride 111 H Carbon Dioxide 20 L BUN 31 H Creatinine
--- NOTE | 2019-07-21 08:49 | PM.IMPN ---
Progress Note: A&P Assessment and Plan (1) Left ureteral injury: Code(s): S37.10XA - Unspecified injury of ureter, initial encounter Status: Acute Assessment and Plan: Patient underwent left percutaneous nephrostomy tube placement on 07/19/2019 and followed up with stone extraction and ureteral stent placement on 07/20/[address] Vargas. Postoperative care per Dr. Vargas (2) Syncopal episodes: Code(s): R55 - Syncope and collapse Status: Acute Assessment and Plan: Patient had a syncopal episode while having a bowel movement in the bathroom on 07/19/2019. He reported he became dizzy and lightheaded, and he pulled the call light in the bathroom. Nursing staff found him ?nodding off but apparently he came to shortly thereafter. He was found to be hypotensive, which responded well to IV fluids. Continue to monitor blood pressure closely Continue fall precautions and ambulation with assistance (3) Hypotension: Code(s): I95.9 - Hypotension, unspecified Status: Acute Assessment and Plan: At presentation, blood pressures were stable at target. On 07/18, he became hypotensive as low as 93/55. He was not orthostatic. Blood pressures responded well to IV fluid bolus. BP is improved. Most recent reading is 132/64. Continue to monitor orthostatic vital signs daily I recommend patient check blood pressure at home several times per week and record for review by PCP. (4) Zqocl-po-wisxrlj kidney injury: Code(s): N17.9 - Acute kidney failure, unspecified; N18.9 - Chronic kidney disease, unspecified Status: Acute Assessment and Plan: Patient has a documented history of chronic kidney disease, stage unknown. Baseline creatinine appears to be 1.2 from review of prior labs. BUN and creatinine are elevated, most likely secondary to ureteral stone, but improving. Today BUN is 31 and creatinine is 2.0. Suspect further improvement following ureteral stent placement. Recommend patient repeat labs as an outpatient in 1 week to monitor renal function (5) H/O total cystectomy: Code(s): Z90.6 - Acquired absence of other parts of urinary tract Status: Acute Assessment and Plan: Patient has a history of bladder cancer and underwent total cystectomy. He has a urostomy bag in place which is draining clear, yellow urine. Continue to monitor Additional Plan Thank you for allowing me to participate in care for this very pleasant gentleman. Subjective Date/time seen: 07/21/19 08:49 Interval history: Date of service: 07/21/2019 Mr. Garcia reports he is feeling well today. He is anxious for discharge. He is sitting up in chair and eating breakfast. He was able to walk several laps around the floor yesterday evening and did well. He denies dizziness or lightheadedness. He denies fever, chills, nausea, vomiting, abdominal pain, flank pain, or back pain. He denies shortness of breath. He has a urostomy bag which is patent and draining clear yellow urine. He has no acute concerns at this time. Review of Systems Review of Systems: Narrative: A 12 point review of systems was reviewed with pertinent positives and negatives as per HPI. Exam Narrative: Exam Narrative: Mr. Garcia is examined alone today. He is a well-nourished 84-year-old male who appears slightly younger than stated age. He is lying supine in bed and appears comfortable in no acute respiratory distress. HR 71, BP 117/57, RR 18, T 98.3?, 94% on room air Neuro: awake, alert and oriented x4, speech clear, no focal neuro deficits noted HEENMT: normocephalic, atraumatic, EOMI, PERRL, sclerae anicteric, moist oral mucosa Neck: supple, no lymphadenopathy Respiratory: Clear to auscultation bilaterally, no wheezes, normal respiratory effort without accessory muscle use Cardio: regular rate, regular rhythm, normal S1 and S2 Abdomen: normal to inspection, nondistended, nor
[2019-07-21 09:51] VITALS: O2SAT 93
--- NOTE | 2019-07-21 10:09 | P.PNAN_ITS ---
Anes - Prog Note Post-Op Date/Time: 07/21/19 10:09 Cardiovascular status: normal Respiratory status: normal Airway patency: baseline Mental status: baseline Post-Op hydration status: normal Vital Signs: Last Vital Signs Temp 36.8 C 07/21/19 07:53 Pulse 68 07/21/19 07:53 Resp 18 07/21/19 07:53 BP 132/64 07/21/19 07:53 Pulse Ox 93 07/21/19 09:51 Pain Score (VAS): 0/10. Patient up at bedside at time of assessment, appears comfortable. I/O: Intake & Output 07/20/19 07/21/19 07/21/19 23:59 07:59 15:59 Intake Total 1840 300 Output Total 730 1325 Balance 1110 -1025 Laboratory Tests 07/21/19 05:11 07/21/19 05:11 07/21/19 07/21/19 05:11 05:11 WBC 10.0 RBC 3.35 L Hgb 9.6 L Hct 30.6 L MCV 91.3 MCH 28.7 MCHC 31.4 L RDW 15.2 H Plt Count 261 MPV 9.7 Immature Gran % (Auto) 0.5 Neut % (Auto) 60.1 Lymph % (Auto) 22.1 [place] % (Auto) 14.6 H Eos % (Auto) 2.2 Baso % (Auto) 0.5 Lymph # (Auto) 2.22 [place] # (Auto) 1.5 H Eos # (Auto) 0.2 Baso # (Auto) 0.1 Abs Immat Gran (auto) 0.05 H Absolute Neuts (auto) 6.0 Absolute Nucleated RBC 0.0 Nucleated RBC % 0.0 Sodium 138 Potassium 3.9 Chloride 111 H Carbon Dioxide 20 L BUN 31 H Creatinine 2.00 H Estim Creat Clear Calc 24 Estimated GFR 32 L Glucose 94 Calcium 7.8 L Total Bilirubin 0.2 AST 18 ALT 7 Alkaline Phosphatase 66 Total Protein 7.0 Albumin 3.2 L Microbiology 07/19/19 13:05 Kidney Left Anaerobic Culture - Preliminary 07/19/19 17:20 Urostomy Urine Culture - Final Post-procedural complaints: none Patient Feedback: Patient satisfied with anesthetic care.
--- NOTE | 2019-08-17 14:33 | P.DS_ITS ---
DS: Admitting Diagnosis Admitting Diagnosis Admitting Diagnosis: Hydronephrosis with renal and ureteral calculous obstruction DS: Summary Time Spent with Patient Time attestation: Total time spent providing and/or coordinating discharge services: 15min. This patient is status post cystectomy with ileal conduit urinary diversion in the remote past. Recent imaging demonstrated progression and left hydronephrosi s, consistent with obstruction. I had made an attempt at loop os could be with dilatation but was unable to find ureteral orifice. He therefore underwent placement of a percutaneous nephrostomy tube on 1 day followed by antegrade pyelogram, repeat fluoroscopy in dilatation of ureter with stent placement. States his hospital course was uneventful. No significant pain or bleeding. He was discharged after removal of the nephrostomy tube the following Exam Const: General: no acute distress Resp: Effort & Inspection: normal respiratory effort GI: Inspection: non-distended GI Palp: No abdominal tenderness and No Guarding due to palpation present (GI) Auscultation: normal bowel sounds Discharge Plan Discharge Consulting providers: Alda Bolanos ; Antonio Anders ; Liliya Arnold ; Kalia Polanco ; Loretta Campbell Discharging Clinician: Pedrito Courtney Anticipated Discharge Date/Time: 07/21/19 08:24 Patient Disposition: Home, Self-Care Activity: may shower Diet: as tolerated Discharge Instructions: Follow up with Dr. Vargas in one week. Call for appointment [phone]. Empty drains two to three times daily and as needed. If tube stops draining call office immediately. Hospitalist recommendations: * You should monitor your blood pressure at home 3-4 times weekly. Record these numbers and bring them with you to your primary care provider to review. You should also check your blood pressure if you have any symptoms including dizziness, lightheadedness, fatigue, weakness, or in general not feeling well. Call your doctor if your blood pressure is consistently <100 on top. Use caution when standing up and go slowly. * Get plenty of rest and drink plenty of water. * You should get your blood drawn in 1 week to check your kidneys. These results will go to your primary care doctor. You can take this order to any lab. * You should schedule an appointment with your primary care doctor in 1-2 weeks to discuss your hospital stay and monitor your blood pressure. Patient Instructions: Antibiotic Form Stand Alone Forms: General Discharge Information Follow-up/Referrals: Hai Vargas MD [Physician] - 1 Week Discharge Medications: New hydrocodone-acetaminophen 5-325 mg tablet 1 - 2 tablet PO Q6H PRN (Reason: pain) Qty: 20 RF: 0 levofloxacin [Levaquin] 500 mg tablet 500 mg PO DAILY Qty: 7 RF: 5 Continued Eligard 7.5 mg (1 month) Syringe 7.5 mg SUBCUT DIRECTED RF: 0 Xtandi 40 mg Capsule 160 mg PO BID RF: 0 Other Ambulatory Orders: Basic Metabolic Panel (Routine) Timeframe: 1 Week Location: Determined by Patient Ordered By: Alda Bolanos Date of admission: 07/20/19 14:48 Admitting Provider: Hai Vargas Discharge Date/Time: 07/21/19 10:20 Attending physician on admission: Pedrito Courtney Quality VTE Prophylaxis VTE prophylaxis: mechanical ordered
== END 2019-07-21 10:20 | disposition home or self-care (01) | DRG 661 ==
PROVIDERS: Nurse Practitioner; Physician Assistant; Radiology Diagnostic Radiology; Urology; Admitting Provider Urology; Visit Provider Urology
PROC: 0T9430Z Drainage of Left Kidney Pelvis with Drainage Device, Percutaneous Approach (ICD-10-PCS; principal; 2019-07-19 11:45)
PROC: 0T788DZ Dilation of Bilateral Ureters with Intraluminal Device, Via Natural or Artificial Opening Endoscopic (ICD-10-PCS; principal; 2019-07-20 11:30)
DX: N13.2 Hydronephrosis with renal and ureteral calculous obstruction (principal); R55 Syncope and collapse; I95.81 Postprocedural hypotension; N17.9 Acute kidney failure, unspecified; N18.9 Chronic kidney disease, unspecified; Z85.46 Personal history of malignant neoplasm of prostate; Z85.51 Personal history of malignant neoplasm of bladder; Z87.891 Personal history of nicotine dependence; Z90.6 Acquired absence of other parts of urinary tract; Z93.6 Other artificial openings of urinary tract status
CPT/HCPCS: 36415; 50432; 76000; 80048; 80053; 81001; 83735; 84443; 85025; 85027; 85049; 85610; 86140; 87070; 87075; 87077; 87086; 87186; 87205; 87635; 96361; 96365; A9270; C1769; C2617; C9803; G0378; J0696; J2250; J2370; J2704; J3010; J7030; J7040; J7050; J7120; Q9966; U0003